=== PATIENT | male | born 1990 | race African-American/Black ===

== ENCOUNTER 2017-08-14 21:26 | Emergency (ER) | payer MEDICAID ==
[~2017-08-14] VITALS: Ht 182.9 cm; Wt 100.0 kg
[2017-08-14] MEDS ORDERED: FLUORESCEIN SODIUM 1MG/STRIP OP ONE (22:15)
[2017-08-14] MEDS ORDERED: GENTAMICIN 0.3% OPTH OINT 3.5GM OP ONE (22:15)
[2017-08-14] MEDS ORDERED: TETRACAINE 0.5% OPHTH DROPS 4ML OP ONE (22:15)
[2017-08-14] MEDS ORDERED: HYDROCODONE/ACETAMINOPHEN 10/325MG TABLET PO ONE (22:30)
[2017-08-15 00:56] VITALS: BP 120/64
== END 2017-08-15 02:54 | disposition home or self-care (01) ==
LOC: ER 21:26
DX: S00.211A Abrasion of right eyelid and periocular area, initial encounter (principal); H57.8 Other specified disorders of eye and adnexa; W22.8XXA Striking against or struck by other objects, initial encounter; Y93.89 Activity, other specified; Y92.89 Other specified places as the place of occurrence of the external cause; R03.0 Elevated blood-pressure reading, without diagnosis of hypertension
CPT/HCPCS: 70486; 99284

== ENCOUNTER 2017-09-19 12:54 | Emergency (ER) | payer BC, MEDICAID, OTHER ==
[~2017-09-19] VITALS: Ht 182.9 cm; Wt 104.0 kg
[2017-09-19 14:13] VITALS: BP 121/81
[2017-09-19] MEDS ORDERED: CYCLOBENZAPRINE 10MG TABLET PO ONE (14:15)
[2017-09-19] MEDS ORDERED: KETOROLAC 60MG/2ML VIAL IM ONE (14:15)
== END 2017-09-19 16:00 | disposition home or self-care (01) ==
LOC: ER 13:52
DX: M51.26 Other intervertebral disc displacement, lumbar region (principal)
CPT/HCPCS: 72148; 96372; 99284; J1885